=== PATIENT | male | born 1975 | race Caucasian/White ===

== ENCOUNTER 2016-07-06 10:16 | Emergency (ER) | payer OTHER ==
[2016-07-06] MEDS ORDERED: KETOROLAC 30 MG/1 ML SDV IM ONE (10:25)
[2016-07-06] MEDS ORDERED: CYCLOBENZAPRINE 10 MG TAB PO ONE (10:25)
[2016-07-06] MEDS ORDERED: OXYCODONE/APAP 5/325 TAB PO ONE (10:26)
--- NOTE | 2016-07-06 10:29 | EDPHY ---
H & P Stated Complaint: Back spasm Time Seen by Provider: 07/06/16 10:17 HPI/ROS: CHIEF COMPLAINT: Back spasm HISTORY OF PRESENT ILLNESS: This is a 41-year-old male patient is brought in by ambulance. Patient states he was at work moving desks, he went to stand up from a bent position felt a sharp pain on the left side lower back radiating to his butt. He stated at that moment he felt like he could not walk due to the pain, denies any bowel or bladder incontinence. No dizziness or lightheaded. Patient was able to transfer by himself from the ambulance pram to the bed. Denies any chest pain or shortness of breath REVIEW OF SYSTEMS: Constitutional: No fever no chills Eyes: No blurred vision Respiratory: No shortness of breath Cardiac: No chest pain Gastrointestinal: No nausea vomiting Genitourinary: No bowel or bladder incontinence Musculoskeletal: Left-sided lower back pain radiating to his left butt Skin: No rash Neurological: No headache or dizziness Source: Patient, EMS - Physical Exam Exam: General Appearance: Alert, no distress. Eyes: Pupils equal and round no pallor or injection. ENT, Mouth: Mucous membranes moist. Respiratory: There are no retractions, lungs are clear to auscultation. Cardiovascular: Regular rate and rhythm. Gastrointestinal: Abdomen is soft and nontender Neurological: Ambulatory without gait disturbance Skin: Warm and dry, no rashes. No abrasions or ecchymosis Musculoskeletal: Full range of motion without difficulty. Neck is supple nontender, no cervical vertebral tenderness, no lumbar or sacral vertebral tenderness. Extremities: symmetrical, full range of motion. Positive left straight leg raises pain to left sciatic Psychiatric: Patient is oriented X 3, there is no agitation. Constitutional: Initial Vital Signs Temperature (C) 36.7 C 07/06/16 10:27 Heart Rate 79 07/06/16 10:27 Respiratory Rate 16 07/06/16 10:27 Blood Pressure 125/80 H 07/06/16 10:27 O2 Sat (%) 95 07/06/16 10:27 O2 Delivery Mode Room Air Allergies/Adverse Reactions: No Known Allergies Allergy (Unverified 07/06/16 10:29) Home Medications: Medication Instructions Recorded Cyclobenzaprine [Flexeril 10 MG 10 mg PO TID PRN #30 tab 07/06/16 (*)] Zoloft 25mg (*) 07/06/16 oxyCODONE/APAP 5/325 [Percocet 1 - 2 tab PO Q4H PRN #10 tab 07/06/16 5/325 (*)] Medical Decision Making ED Course/Re-evaluation: Discussed plan of care: IM Toradol, Flexeril 10 mg PO, Dilaudid 2 mg PO 1200: Patient states doing somewhat better, decrease in pain and spasms 1230: Patient ambulatory without gait disturbance, not in any distress. Discharge home---> stable, discussed discharge instructions Differential Diagnosis: Differential diagnosis considered but not limited to lower back strain, cauda equina and inguinal hernia - Data Points Medications Given: Discontinued Medications Cyclobenzaprine HCl (Flexeril) 10 mg PO EDNOW ONE Stop: 07/06/16 10:26 Last Admin: 07/06/16 10:40 Dose: 10 mg Hydromorphone HCl (Dilaudid) 2 mg PO EDNOW ONE Stop: 07/06/16 11:18 Last Admin: 07/06/16 11:31 Dose: 2 mg Ketorolac Tromethamine (Toradol) 60 mg IM EDNOW ONE Stop: 07/06/16 10:26 Last Admin: 07/06/16 10:40 Dose: 60 mg Oxycodone/Acetaminophen (Percocet 5/325) 1 tab PO EDNOW ONE Stop: 07/06/16 10:27 Last Admin: 07/06/16 10:40 Dose: 1 tab Departure - Departure Disposition: Home, Routine, Self-Care Clinical Impression: Sciatica of left side Condition: Good Instructions: Sciatica (ED), Lower Back Exercises (ED) Additional Instructions: 1. Decrease any strenuous activity, no pulling or pushing or lifting for the next few days 2. After 2-3 days you can advanced exercise as tolerated 3. Heating pad hot tub soaks to the area can be beneficial. You can also use [id number] lidocaine patches to the area 12 hours on 12 hours off 4. Ibuprofen 600-800 mg every 6-8 hours. Take additional prescription medication as prescribed Referrals: Patient,NotPresent [Primary Care Provider] - As per Instructions [facility],. [Clinic] - As per Instructions Prescriptions: Cyclobenzaprine [Flexeril 10 MG (*)] 10 mg PO TID PRN #30 tab PRN Reason: Spasms oxyCODONE/APAP 5/325 [Percocet 5/325 (*)] 1 - 2 tab PO Q4H PRN #10 tab PRN Reason: Pain, Severe
[2016-07-06] MEDS ORDERED: HYDROmorphONE/DILAUDID 2 MG TAB PO ONE (11:17)
[2016-07-06 13:22] VITALS: BP 130/85; PULSE 85; RESP 18; TEMP 97.9; O2SAT 96
== END 2016-07-06 13:22 | disposition home or self-care (01) ==
DX: M54.32 Sciatica, left side (principal)
CPT/HCPCS: J1885